=== PATIENT | female | born 1960 | race Caucasian/White ===

== ENCOUNTER 2017-08-15 07:56 | Day surgery (SDC) | payer BC, OTHER ==
--- NOTE | 2017-08-13 15:39 | HP ---
DATE OF SURGERY: 08/15/2017 ADMISSION DIAGNOSIS: Right chest wall nodule. ANTICIPATED PROCEDURE: Excision and closure. HISTORY OF PRESENT ILLNESS: PAST MEDICAL HISTORY: ALLERGIES: NONE. MEDICATIONS: See list. PAST SURGICAL HISTORY: Breast cancer. SOCIAL HISTORY: Negative. FAMILY HISTORY: Negative. REVIEW OF SYSTEMS: Negative. PHYSICAL EXAMINATION: VITAL SIGNS: Normal. CHEST: Clear. COR: Regular. IMPRESSION: Lesion right chest. PLAN: Excision.
[~2017-08-15 07:56] MED LIST: Lactated Ringers 1,000 ML IV SCH; Sensorcaine 0.25% 10 ML ONE
[2017-08-15] MEDS ORDERED: SUBLIMAZE 100 MCG/2 ML IV ONE (07:57)
[2017-08-15] MEDS ORDERED: DIPRIVAN 200 MG/20 ML IV ONE (07:57)
[2017-08-15] MEDS ORDERED: Versed 2 MG/2 ML Injection IV ONE (07:57)
[2017-08-15] MEDS ORDERED: Lactated Ringers 1,000 ML IV ONE (08:00)
[2017-08-15] MEDS ORDERED: KEFZOL 1 GM ONE (10:55)
[2017-08-15] MEDS ORDERED: TRANDATE 100 MG/20 ML MDV FOR DRIP IV ONE (11:27)
[2017-08-15] MEDS ORDERED: SUBLIMAZE 100 MCG/2 ML ONE (11:33)
[2017-08-15 12:28] VITALS: BP 187/90; PULSE 78; O2SAT 95
--- NOTE | 2017-08-15 15:15 | OP ---
SURGERY DATE/TIME: 08/15/2017 1025 PREOPERATIVE DIAGNOSIS: A 3 cm mass on previous right mastectomy site. POSTOPERATIVE DIAGNOSIS: A 3 cm mass on previous right mastectomy site. PROCEDURE: Major right chest wall excision including skin, subcu, deep subcu and portion of pectoralis major muscle and closure with 3.5 cm lesion being excised through a 14 x 5 cm elliptical excision with mobilization and closure. SURGEON: Trey Bowen M.D. ANESTHESIA: General. COMPLICATIONS: None. CONDITION: Stable. INDICATION: A patient with a very indurated, firm mass. It is unclear whether it is recurrence or scar. DESCRIPTION OF PROCEDURE: She was taken to surgery. It was treated as recurrence and a wide excision of this was performed. Hemostasis obtained with electrocautery. Flaps were mobilized. It was approximated. It was 14 cm long. Closed with vertical mattress sutures #20 Prolene. Hemostasis had been obtained with 3-0 Vicryl and electrocautery. The lesion itself was not violated. It was widely excised. It did require taking a portion of the musculature.
== END 2017-08-15 12:54 | disposition home or self-care (01) ==
LOC: SDC 07:56
PROVIDERS: ATTEND Surgery
PROC: 0JX60ZC Transfer Chest Subcutaneous Tissue and Fascia with Skin, Subcutaneous Tissue and Fascia, Open Approach (ICD-10-PCS; principal; 2017-08-15)
PROC: 0JB60ZZ Excision of Chest Subcutaneous Tissue and Fascia, Open Approach (ICD-10-PCS; 2017-08-15)
DX: C50.911 Malignant neoplasm of unspecified site of right female breast (principal); C79.89 Secondary malignant neoplasm of other specified sites; R22.2 Localized swelling, mass and lump, trunk; Z85.3 Personal history of malignant neoplasm of breast
CPT/HCPCS: 88305; 88341; 88342; 88360; J0690; J2250; J2704; J3010

== ENCOUNTER 2018-03-10 17:26 | Emergency (ER) | payer BC ==
[2018-03-10] MEDS ORDERED: TORAdol 30 mg Injection IM ONE (17:47)
--- NOTE | 2018-03-10 17:47 | ERPHSYRPT ---
- History of Present Illness Time Seen by Provider: 03/10/18 17:44 Source: patient, family Exam Limitations: no limitations Physician History: The patient is a 57-year-old female with family complaining that 6 hours ago she stubbed her right little toe on the couch causing bruising and pain. It is very painful when she tries to walk. Her past medical history is significant for breast cancer with double mastectomy. She is currently on chemotherapy. Method of Injury: direct blow Occurred: this afternoon Quality: constant, aching Severity of Pain-Max: moderate Severity of Pain-Current: moderate Lower Extremities Pain: 5th toe: right Modifying Factors: Improves With: nothing Associated Symptoms: none Allergies/Adverse Reactions: codeine Adverse Reaction (Verified 03/10/18 17:50) Nausea Home Medications: Cetirizine HCl [Zyrtec] 10 mg PO DAILY 03/10/18 [History] Cyanocobalamin 100 Mcg [Vitamin B-12 100 Mcg] 100 mcg PO DAILY 03/10/18 [ History] - Review of Systems Constitutional: No Fever, No Chills Eyes: No Symptoms Ears, Nose, & Throat: No Symptoms Respiratory: No Cough, No Dyspnea Cardiac: No Chest Pain, No Edema, No Syncope Abdominal/Gastrointestinal: No Abdominal Pain, No Nausea, No Vomiting, No Diarrhea Genitourinary Symptoms: No Dysuria Musculoskeletal: Injury, Joint Pain, Joint Swelling Skin: No Rash Neurological: No Dizziness, No Focal Weakness, No Sensory Changes Psychological: No Symptoms Endocrine: No Symptoms Hematologic/Lymphatic: No Symptoms Immunological/Allergic: No Symptoms All Other Systems: Reviewed and Negative - Past Medical History Pertinent Past Medical History: Yes Neurological History: No Pertinent History ENT History: No Pertinent History Cardiac History: No Pertinent History Respiratory History: No Pertinent History Endocrine Medical History: No Pertinent History Musculoskeletal History: No Pertinent History GI Medical History: No Pertinent History History: No Pertinent History Psycho-Social History: No Pertinent History Female Reproductive Disorders: Breast Cancer Other Medical History: genital warts - Past Surgical History Past Surgical History: Yes Neuro Surgical History: No Pertinent History Cardiac: No Pertinent History Respiratory: No Pertinent History Gastrointestinal: No Pertinent History Genitourinary: No Pertinent History Musculoskeletal: No Pertinent History Female Surgical History: Dilation & Curettage, Section, Mastectomy, Other Other Surgical History: CVL PLACEMENT AND REMOVAL, ESTRADA PROCEDURE X3 - Social History Smoking Status: Never smoker Exposure to second hand smoke: No Drug Use: none - Nursing Vital Signs Nursing Vital Signs: Initial Vital Signs Temperature 98.7 F 03/10/18 17:40 Pulse Rate 100 H 03/10/18 17:40 Respiratory Rate 16 03/10/18 17:40 Blood Pressure 161/101 03/10/18 17:40 O2 Sat by Pulse Oximetry 95 03/10/18 17:40 Pain Scale Pain Intensity 2 - Physical Exam General Appearance: alert Eyes, Ears, Nose, Throat Exam: moist mucous membranes Neck Exam: non-tender, supple Cardiovascular/Respiratory Exam: chest non-tender, normal breath sounds, regular rate/rhythm, no respiratory distress Gastrointestinal/Abdominal Exam: non-tender, guarding Back Exam: normal inspection, No vertebral tenderness Hips Exam: bilateral: normal inspection Legs Exam: bilateral leg: normal inspection Knees Exam: bilateral knee: normal inspection Ankle Exam: bilateral ankle: normal inspection Foot Exam: right foot: limited range of motion, pain, soft tissue tenderness, swelling, other (The MTP joint of the right foot fifth digit is tender, swollen , and ecchymotic. There is limited range of motion due to pain. There is no obvious deformity.) Neuro/Tendon Exam: normal sensation, normal motor functions Mental Status Exam: alert, oriented x 3, cooperative Skin Exam: ecchymosis SpO2 Interpretation: normal Oxygen Delivery: Room Air - Radiology Exams Right Foot X-ray Interpretation: Reviewed by me, Discussed w/ radiologist (Dr Woodard), Negative, No Fracture, No Subluxation Ordered Tests: Active Orders 24 hr Category Date Time Status FOOT (MINIMUM 3 VIEWS) Stat Exams 03/10/18 17:47 Taken Medication Summary Discontinued Medications Generic Name Dose Route Start Last Admin Trade Name [facility] PRN Reason Stop Dose Admin Ketorolac Tromethamine 60 mg 03/10/18 17:47 03/10/18 18:25 Toradol 30 Mg Injection IM 03/10/18 17:48 60 mg STAT ONE Administration Ketorolac Tromethamine Confirm 03/10/18 18:24 Toradol 30 Mg Injection Administered 03/10/18 18:25 Dose 60 mg .ROUTE .STK-MED ONE - Progress Progress: improved Counseled pt/family regarding: diagnosis, rad results - Departure Time of Disposition: 18:58 Departure Disposition: Home Clinical Impression: Contusion of fifth toe of right foot Condition: Stable Critical Care Time: No Referrals: KENYA DELA CRUZ MD [Primary Care Provider] - Additional Instructions: You have a contusion to your right little toe. The x-ray was normal without any broken bones. You were given Toradol 60 mg by IM in the ER. Apply ice to the area as needed. Take Tylenol and ibuprofen as needed. Follow-up with your primary medical doctor as needed.
[2018-03-10] MEDS ORDERED: TORAdol 30 mg Injection ONE (18:24)
[2018-03-10 19:11] VITALS: BP 180/93; PULSE 96; O2SAT 96
--- NOTE | 2018-03-11 08:44 | XRAY ---
Indication: 5th toe pain following injury. Comparison: October 16, 2008. 3 nonweightbearing views of the right foot demonstrates 5th toe soft tissue swelling and interval enlarging small heel spurs. No other bony, articular, or soft tissue abnormalities.
== END 2018-03-10 19:12 | disposition home or self-care (01) ==
LOC: ED 17:26
DX: S90.121A Contusion of right lesser toe(s) without damage to nail, initial encounter (principal); W22.03XA Walked into furniture, initial encounter
CPT/HCPCS: 73630; 96372; 99284; J1885

== ENCOUNTER 2018-07-25 15:14 | Observation (INO) | payer BC ==
[2018-07-25] MEDS ORDERED: ANTIVERT 25 MG PO PRN (15:58)
[2018-07-25] MEDS ORDERED: NON-FORMULARY ITEM (Prochlorperazine Maleate 10 Mg [Compazine 10 Mg] 10 MG) PO PRN (15:58)
[2018-07-25] MEDS ORDERED: BETAMETHASONE DIPROPIONATE TP PRN (15:58)
[2018-07-25] MEDS ORDERED: LYRICA 75 MG CAP PO PRN (15:58)
[2018-07-25] MEDS ORDERED: Sodium Chloride 0.9% 1000 ML 1,000 ML IV ONE ×2 (16:00→17:00)
[2018-07-25] MEDS ORDERED: MOTRIN 400 MG PO PRN (16:07)
[2018-07-25] MEDS ORDERED: TYLENOL EXTRA STRENGTH 500 MG PO PRN (16:07)
[2018-07-25] MEDS ORDERED: MEDICATION INTERVENTION MC SCH (16:30)
[2018-07-25] MEDS ORDERED: MEDICATION INTERVENTION PO SCH (16:30)
[2018-07-25 17:13] LABS: Hematocrit 40.5 % (35-47); Hemoglobin 13.7 gm/dl (12.0-16.0); Mean Cell Volume 84.9 fl (78-100); Mean Corpuscular Hemoglobin 28.7 pg (26-32); Mean Corpuscular Hgb Concent. 33.8 g/dl (32-36); Mean Platelet Volume 9.4 fl (6-9.5); Platelet Count 143 K/mm3 (150-450); Red Blood Count 4.77 M/mm3 (4.1-5.4); Red Cell Distribution Width 13.9 % (11.5-14.0)
[2018-07-25] MEDS: ENOXAPARIN SODIUM SQ SCH (17:13)
[2018-07-25] MEDS: ROCEPHIN 1 Gm-D5w 50 ml Bag** 1 G/50 ML IVPB IV SCH (17:13)
[2018-07-25] MEDS: Zithromax 500 MG/ 250 ML NaCl Premix 500 MG/250 ML IVPB IV SCH (17:17)
[2018-07-25 17:19] LABS: ALBUMIN 3.8 g/dL (3.5-5.0); ALKALINE PHOSPHATASE 105 U/L (38-126); ANION GAP 10.8 MEQ/L (5-15); BLOOD UREA NITROGEN 11 mg/dL (7-17); CHLORIDE 106 mmol/L (98-107); Calcium 8.6 mg/dL (8.4-10.2); Carbon Dioxide 27 mmol/L (22-30); Creatinine 1 0.86 mg/dL (0.52-1.04); Glucose 136 mg/dL (74-106); Potassium 3.3 mmol/L (3.5-5.1); SGOT/AST 29 U/L (14-36); SGPT/ALT 29 U/L (0-35); SODIUM 140 mmol/L (137-145); Total Protein 7.1 g/dL (6.3-8.2)
[2018-07-25] MEDS: Robitussin AC Syrup Unit Dose Cup PO PRN ×2 (17:25→21:08)
[2018-07-25] MEDS: Naprosyn 500 MG PO PRN (21:14)
[2018-07-25] MEDS: Vitamin B-12 500 MCG PO SCH (21:28)
[2018-07-25] MEDS: CLARITIN 10 MG PO SCH (21:29)
[2018-07-25] MEDS: Protonix 40MG Tablet PO SCH (21:29)
[2018-07-25] MEDS: VITAMIN B-12 100 MCG PO SCH (21:31)
[2018-07-25] MEDS ORDERED: NON-FORMULARY ITEM (Omeprazole [Omeprazole] 20 MG) PO SCH (22:00)
[2018-07-25] MEDS ORDERED: NON-FORMULARY ITEM (Cetirizine Hcl [Zyrtec] 10 MG) PO SCH (22:00)
[2018-07-25] MEDS ORDERED: EXEMESTANE PO SCH (22:00)
--- NOTE | 2018-07-25 22:28 | XRAY ---
Indication: Cough and congestion one month. Comparison: November 06, 2017. PA/lateral chest remains clear. Heart and mediastinal structures within normal limits again with left-sided Port-A-Cath. Bony thorax intact with mild degenerative changes, mild double curvature scoliosis, and right axilla surgical clips. Impression: Stable nonacute chest with chronic features. Comment: Preliminary interpretation was made by [facility] who reports "left posterior basilar bronchopneumonia" which I do not appreciate.
[2018-07-26] MEDS: Sodium Chloride 0.9% 1000 ML 1,000 ML IV SCH (03:57)
[2018-07-26] MEDS: Robitussin AC Syrup Unit Dose Cup PO PRN ×3 (04:15→18:23)
[2018-07-26] MEDS ORDERED: PATIENT OWN MEDICATION TOP PRN (07:52)
[2018-07-26] MEDS: ENOXAPARIN SODIUM SQ SCH (08:35)
[2018-07-26] MEDS: ROCEPHIN 1 Gm-D5w 50 ml Bag** 1 G/50 ML IVPB IV SCH (08:36)
[2018-07-26] MEDS: PATIENT OWN MEDICATION PO SCH ×2 (08:36→21:57)
[2018-07-26] MEDS: Zithromax 500 MG/ 250 ML NaCl Premix 500 MG/250 ML IVPB IV SCH (09:51)
[2018-07-26 13:36] LABS: A-aADO2 1; ABG HEMOGLOBIN 12.6; ABG POTASSIUM 3.5 (3.5-5.1); ABG SITE RIGHT BRACHIAL; ARTERIAL BLD GAS O2 SATURATION 98.9 % (95-100); ARTERIAL BLOOD GAS BASE EXCESS -0.9 (-2.0-2.0); ARTERIAL BLOOD GAS FIO2 21 %; ARTERIAL BLOOD GAS PCO2 37 mmHg (35-45); ARTERIAL BLOOD GAS PO2 102 mmHg (75-100); ARTERIAL BLOOD GAS pH 7.41 (7.35-7.45); CARBOXYHEMOGLOBIN 2.5 % THgb (0.0-6.9); HCO3- 23.5 (22-28); HGB O2 SAT 95.6 g/dF (94-100); Methhemoglobin 0.9 % (1.4-1.5); paO2 pAO1 0.99
[2018-07-26] MEDS: solu-MEDROL 125 MG IV SCH ×2 (14:16→21:56)
[2018-07-26] MEDS: Compazine 5 MG PO PRN (17:55)
[2018-07-26] MEDS: Vitamin B-12 500 MCG PO SCH (21:56)
[2018-07-26] MEDS: VITAMIN B-12 100 MCG PO SCH (21:56)
[2018-07-26] MEDS: Protonix 40MG Tablet PO SCH (21:56)
[2018-07-26] MEDS: Naprosyn 500 MG PO PRN (21:56)
[2018-07-26] MEDS: CLARITIN 10 MG PO SCH (21:56)
[2018-07-27] MEDS: Sodium Chloride 0.9% 1000 ML 1,000 ML IV SCH ×3 (02:03→23:15)
[2018-07-27] MEDS: solu-MEDROL 125 MG IV SCH ×3 (06:19→21:44)
[2018-07-27] MEDS: Robitussin AC Syrup Unit Dose Cup PO PRN ×3 (06:19→18:45)
--- NOTE | 2018-07-27 08:24 | XRAY ---
Indication: Elevated d-dimer. Multiple contiguous axial images obtained through the chest using 80 cc Isovue 370 contrast and PE protocol. Comparison: CT chest September 17, 2010. There is satisfactory opacification of the pulmonary arteries to include the lobar and segmental branches. No filling defect or pulmonary embolus. Heart is not enlarged. Aorta is normal in course and caliber. New left-sided Port-A-Cath with tip in the SVC. No pathologic mediastinal/hilar lymphadenopathy. Examination of the lung parenchyma again demonstrates right middle lobe minimal fibrosis/scarring and 5 mm nodularity unchanged. No suspicious pulmonary mass, infiltrate, or effusion. Bony thorax intact. There has been bilateral mastectomy with right axillary santos dissection. New fluid collection in the right anterior chest wall measuring 9.1 x 3.6 x 1.2 cm either postoperative seroma versus hematoma with infection not completely excluded in the right clinical setting. Limited upper abdomen demonstrates mild fatty liver. Impression: 1. Negative pulmonary embolus. No acute cardiopulmonary abnormalities. 2. Stable right middle lobe fibrosis/scarring and nodularity. 3. Bilateral mastectomy with new right injury or chest wall fluid collection. Rule out postoperative seroma versus hematoma. Infection not completely excluded. 4. Incidental fatty liver. Comment: Preliminary interpretation was made by [facility]. No critical discrepancy. CTDI 21.38
[2018-07-27] MEDS: ENOXAPARIN SODIUM SQ SCH (10:31)
[2018-07-27] MEDS: Zithromax 500 MG/ 250 ML NaCl Premix 500 MG/250 ML IVPB IV SCH (10:32)
[2018-07-27] MEDS: ROCEPHIN 1 Gm-D5w 50 ml Bag** 1 G/50 ML IVPB IV SCH (10:32)
--- NOTE | 2018-07-27 19:48 | XRAY ---
Indication: Right shoulder pain. No known injury. Comparison: None 3 views of the right shoulder demonstrates mild AC degenerative arthropathy with inferior spurring, partially visualized left central venous access catheter with tip in SVC, and tiny metallic foreign body overlying the axilla. No other bony, articular, or soft tissue abnormalities.
[2018-07-27] MEDS: CLARITIN 10 MG PO SCH (21:44)
[2018-07-27] MEDS: Vitamin B-12 500 MCG PO SCH (21:44)
[2018-07-27] MEDS: VITAMIN B-12 100 MCG PO SCH (21:44)
[2018-07-27] MEDS: Protonix 40MG Tablet PO SCH (21:44)
[2018-07-27] MEDS: PATIENT OWN MEDICATION PO SCH (21:46)
[2018-07-28] MEDS: Robitussin AC Syrup Unit Dose Cup PO PRN ×4 (02:02→21:38)
[2018-07-28] MEDS: Ativan 0.5 MG PO PRN (02:06)
[2018-07-28] MEDS: solu-MEDROL 125 MG IV SCH ×3 (06:13→21:36)
[2018-07-28] MEDS: ENOXAPARIN SODIUM SQ SCH (07:49)
[2018-07-28] MEDS: ROCEPHIN 1 Gm-D5w 50 ml Bag** 1 G/50 ML IVPB IV SCH (07:49)
[2018-07-28] MEDS: Zithromax 500 MG/ 250 ML NaCl Premix 500 MG/250 ML IVPB IV SCH (09:04)
[2018-07-28] MEDS: PATIENT OWN MEDICATION PO SCH ×2 (09:38→21:37)
[2018-07-28] MEDS ORDERED: Lopressor 25MG Tab PO SCH (10:00)
--- NOTE | 2018-07-28 10:29 | XRAY ---
Indication: Elevated d-dimer. Two-dimensional sonogram and color Doppler imaging of the major venous vessels of the left and right leg was performed. Comparison: None No thrombus seen in the examined deep venous vessels of the left and right leg including greater saphenous veins. Veins demonstrate normal compressibility. Venous waveforms are normal with and without augmentation. Impression: Left and right legs negative for DVT.
[2018-07-28] MEDS: Sodium Chloride 0.9% 1000 ML 1,000 ML IV SCH ×2 (11:39→21:35)
[2018-07-28] MEDS ORDERED: PATIENT OWN MEDICATION TOP PRN (12:39)
--- NOTE | 2018-07-28 13:11 | PROG NOTE ---
DATE: 07/27/2018 Chart is reviewed and events noted. Initially it was thought she might be allergic to contrast. Fish allergy. Allergic to fish several years ago. However eventually the patient stated it was not specific in nature and requested to undergo CT scan anyway. The patient underwent CT chest yesterday. At the time of this evaluation she is alert, awake, comfortable, states the shortness of breath is improving, still having some cough. Complains of right shoulder pain which has been there for the last several days, denies recent trauma or unusual activity. The patient states she was told that due to her chemotherapy she might have some problems with the right shoulder. PHYSICAL EXAMINATION: VITAL SIGNS: Blood pressure 172/77, heart rate 92, respiratory rate 18, temperature 98.2F. Oxygen saturation 95% on room air. HEENT: No pallor or icterus is noted. NECK: No JVD is present. CVS: S1, S2 present. RESPIRATORY: Breath sounds are bilaterally diminished and clear to auscultation. ABDOMEN: Soft, nontender. NEURO: She is alert, oriented x3. EXTREMITIES: No edema on bilateral lower extremities. No calf tenderness. Janette sign negative bilaterally. Brief examination of right shoulder shows tenderness and painful range of motion. LABORATORY DATA AND TESTS: Labs from yesterday were notable for D-dimer of 802. ABG showed pH 7.41, pCO2 37, pO2 102. Troponin was less than 0.012. Patient underwent CT chest yesterday showed negative pulmonary embolus. No acute cardiopulmonary abnormalities. Stable right middle lobe fibrosis/scarring and nodularity. Bilateral mastectomy with new right injury or chest wall fluid collection 9.1 x 3.6 x1.2 cm. Rule out postoperative seroma versus hematoma. Infection not completely excluded. Incidental fatty liver. Medications were reviewed. ASSESSMENT: A 57 year old woman with impression: 1) Acute bronchopneumonia. 2) Fluid collection right chest wall. 3) History of breast CA status post treatment. PLAN: The patient is improving clinically. Will continue nebulization, IV antibiotics, IV steroids and taper steroids as tolerated. With regards to her right chest wall hematoma the patient states her surgery on the right breast area was about one year ago and at this time she still had some discomfort. Brief examination of the area showed well healed surgical scar in the right breast region. Ill-defined area of tenderness in the region and mild swelling was noted around this area. In view of the patient's above CT findings, will obtain surgery evaluation, additional diagnosis and management of fluid collection per surgery recommendations. With regards to right shoulder pain, I have advised the patient that she will likely need MRI. The patient is requesting right shoulder chest x-ray to be done while she is here and will request that. She declined any additional analgesics and states current medications are helping. Likely discharge tomorrow if continues to improve. The plan was discussed with the patient. She seems to be in understanding and agreement. ADDENDUM: Please refer to my prior dictation for details. As noted earlier CT chest was negative. In view of elevated D-dimer and patient's prior history will obtain bilateral lower extremity venous Doppler's. The plan was discussed with the patient. She seems to be in understanding and agreement. The patient's nurse was not available at the time of this evaluation.
[2018-07-28 14:07] LABS: 027 TOX PROD PRESUMPTIVE NEGATIVE (NEGATIVE); TOXIGENIC C. DIFF ORG NEGATIVE (NEGATIVE)
[2018-07-28] MEDS: Lomotil PO PRN ×2 (14:28→21:48)
[2018-07-28] MEDS ORDERED: Lopressor 25MG Tab PO PRN (17:53)
[2018-07-28] MEDS: Vitamin B-12 500 MCG PO SCH (21:36)
[2018-07-28] MEDS: VITAMIN B-12 100 MCG PO SCH (21:36)
[2018-07-28] MEDS: CLARITIN 10 MG PO SCH (21:36)
[2018-07-28] MEDS: Protonix 40MG Tablet PO SCH (21:36)
[2018-07-29] MEDS: Ativan 0.5 MG PO PRN (00:37)
[2018-07-29] MEDS: solu-MEDROL 125 MG IV SCH (06:09)
[2018-07-29] MEDS: Compazine 5 MG PO PRN (06:46)
[2018-07-29] MEDS: Sodium Chloride 0.9% 1000 ML 1,000 ML IV SCH (08:02)
[2018-07-29] MEDS: Robitussin AC Syrup Unit Dose Cup PO PRN (08:03)
--- NOTE | 2018-07-29 08:04 | PROG NOTE ---
DATE: 07/26/2018 Chart is reviewed and events noted. At the time of this evaluation a short while ago the patient stated that she continues to have persistent shortness of breath, chest congestion and productive cough. Complains of fatigue. Appears comfortable. PHYSICAL EXAMINATION: VITAL SIGNS: Blood pressure 159/77, heart rate 81, respiratory rate 18, temperature 98.1F. Oxygen saturation 96% on room air. HEENT: No pallor or icterus is noted. NECK: No JVD is present. CVS: S1, S2 present. RESPIRATORY: Course breath sounds. ABDOMEN: Soft, nontender. NEURO: She is alert and oriented x3. EXTREMITIES: No edema on bilateral lower extremities. LABORATORY DATA AND TESTS: Labs from 07/25/2018 were notable for CBC with white blood cell 3, hemoglobin 13.7, hematocrit 40.5, PLT 143,000. BMP essentially unremarkable except potassium 3.3, glucose 136. Chest x-ray from 07/25/2018 showed stable nonacute chest with chronic features. Medications were reviewed. ASSESSMENT: A 57 year old woman with impression: 1) Bronchitis, recurrent. 2) History of anxiety. 3) History of lymphoma status post treatment. 4) Mild hypokalemia. PLAN: 1) Continue IV antibiotics. 2) Addition of nebulization, IV steroids. 3) Continue to follow CBC, electrolytes and chest x-ray. 4) Lovenox and SCD will be discontinued. Will obtain D-dimer. The plan was discussed with the patient and her son. They seem to be in understanding and agreement. Discussed with patient's nurse.
[2018-07-29] MEDS: Lomotil PO PRN (08:06)
[2018-07-29] MEDS ORDERED: ENOXAPARIN SODIUM SQ SCH (10:00)
[2018-07-29] MEDS: ROCEPHIN 1 Gm-D5w 50 ml Bag** 1 G/50 ML IVPB IV SCH (10:19)
[2018-07-29] MEDS: Zithromax 500 MG/ 250 ML NaCl Premix 500 MG/250 ML IVPB IV SCH (10:20)
[2018-07-29] MEDS: PATIENT OWN MEDICATION PO SCH (10:21)
[2018-07-29 11:22] VITALS: BP 166/100; PULSE 66; O2SAT 96
--- NOTE | 2018-07-29 12:35 | PCM.NOTE ---
Date and Time: 07/28/2018 1234 Subjective Assessment: doing ok - Review of Systems Constitutional: No Fever, No Chills Eyes: No Symptoms Ears, Nose, & Throat: No Symptoms Respiratory: No Cough, No Short Of Breath Cardiac: No Chest Pain, No Edema, No Syncope Abdominal/Gastrointestinal: No Abdominal Pain, No Nausea, No Vomiting, No Diarrhea Genitourinary Symptoms: No Dysuria Musculoskeletal: No Back Pain, No Neck Pain Skin: No Rash Neurological: No Dizziness, No Focal Weakness, No Sensory Changes Psychological: No Symptoms Endocrine: No Symptoms Hematologic/Lymphatic: No Symptoms Immunological/Allergic: No Symptoms Objective Exam General Appearance: no apparent distress, alert Neurologic Exam: alert, oriented x 3, cooperative, normal mood/affect, nml cerebellar function, sensation nml, No motor deficits Skin Exam: normal color, warm, dry Eye Exam: PERRL, EOMI, eyes nml inspection Ears, Nose, Throat Exam: normal ENT inspection, pharynx normal, moist mucous membranes Neck Exam: normal inspection, non-tender, supple, full range of motion Respiratory Exam: normal breath sounds, lungs clear, No respiratory distress Cardiovascular Exam: regular rate/rhythm, normal heart sounds Gastrointestinal/Abdomen Exam: soft, No tenderness, No mass Extremity Exam: normal inspection, normal range of motion Back Exam: normal inspection, normal range of motion, No CVA tenderness, No vertebral tenderness Pelvic Exam: deferred Rectal Exam: deferred OBJECTIVE DATA Vital Signs: Vital Signs - 24 hr Temp Pulse Resp BP BP Pulse Ox 07/29/18 11:21 97.5 F 66 20 166/100 96 07/29/18 07:06 98.1 F 87 20 95 07/29/18 04:00 97.9 F 75 22 188/83 96 07/29/18 00:00 98.5 F 78 20 196/81 94 L 07/28/18 20:10 82 210/110 07/28/18 20:00 97.5 F 74 18 232/123 224/115 94 L 07/28/18 16:00 98 F 86 18 183/81 94 L Pain Assessment - Last Documented Pain Intensity 0 Pain Scale Used FLACC Intake and Output: Intake & Output 07/27/18 07/28/18 07/29/18 07/30/18 11:59 11:59 11:59 11:59 Intake Total 2920 2400 4206 Output Total 1198 509 8593 Balance 1740 2000 2906 Lab Results: Lab Results-Last 24 Hours 07/28/18 Range/Units 12:49 Stl C. diff Tox B Gene NEGATIVE (NEGATIVE) C.difficile [id number] PRESUMPTIVE NEGATIVE (NEGATIVE) Radiology Exams: Radiology Procedures Category Date Time Status SHOULDER Routine Exams 07/27/18 16:58 Completed VENOUS BILATERAL EXTREMITY [US] Routine Exams 07/28/18 08:00 Completed Assessment/Plan (1) Immunocompromised patient Current Visit: Yes Status: Acute Code(s): D84.9 - IMMUNODEFICIENCY, UNSPECIFIED (2) Pneumonia Current Visit: Yes Status: Acute Code(s): J18.9 - PNEUMONIA, UNSPECIFIED ORGANISM (3) Shortness of breath on exertion Current Visit: Yes Status: Acute Code(s): R06.02 - SHORTNESS OF BREATH
--- NOTE | 2018-07-29 12:36 | PCM.DS ---
Discharge Summary Date of Admission: 07/25/18 15:14 Admitting Physician: KENYA DELA CRUZ Consults: Consults on Case 07/27/18 16:22 Consult Surgery ROUTINE Primary Care Provider: KENYA DELA CRUZ Allergies Allergies codeine Adverse Reaction (Verified 03/10/18 17:50) Nausea Hospital Summary - Hospital Course Hospital Course: Last Vital Signs Temp 97.5 F 07/29/18 11:21 Pulse 66 07/29/18 11:21 Resp 20 07/29/18 11:21 BP 166/100 07/29/18 11:21 Pulse Ox 96 07/29/18 11:21 Allergies codeine Adverse Reaction (Verified 03/10/18 17:50) Nausea Active Medications Acetaminophen (Tylenol Extra Strength 500 Mg) 500 mg PO Q6H PRN PRN PRN Reason: HEADACHE Stop: 08/24/18 16:06 Cyanocobalamin (Vitamin B-12 100 Mcg) 100 mcg PO HS JONE Stop: 08/24/18 21:59 Last Admin: 07/28/18 21:36 Dose: 100 mcg Cyanocobalamin (Vitamin B-12 500 Mcg) 500 mcg PO HS [facility] Stop: 08/24/18 21:59 Last Admin: 07/28/18 21:36 Dose: 500 mcg Diphenoxylate HCl/Atropine (Lomotil) 1 tablet PO Q4H PRN PRN Reason: DIARRHEA Stop: 08/27/18 09:24 Last Admin: 07/29/18 08:06 Dose: 1 tablet Enoxaparin Sodium (Enoxaparin Sodium) 30 mg SQ DAILY JONE Stop: 08/28/18 09:59 Last Admin: 07/29/18 10:22 Dose: Not Given Ergocalciferol (Vitamin D2) 50,000 unit PO Th JONE Stop: 08/30/18 09:59 Guaifenesin/Codeine Phosphate (Robitussin Ac Syrup Unit Dose Cup) 5 ml PO Q4H PRN PRN PRN Reason: COUGH Stop: 08/24/18 16:05 Last Admin: 07/29/18 08:03 Dose: 5 ml Heparin Sodium (Beef Lung) (Heparin Lock Flush 100 Units/Ml 5ml Syringe) 500 units PORT FLUSH PRN PRN PRN Reason: IV PORT FLUSH Stop: 08/25/18 11:15 Last Admin: 07/29/18 12:21 Dose: 500 units Ceftriaxone Sodium/Dextrose (Rocephin 1 Gm-D5w 50 Ml Bag) 1 g in 50 mls @ 100 mls/hr IV Q24H10 [facility] Stop: 08/24/18 17:59 Last Admin: 07/29/18 10:19 Dose: 100 mls/hr Azithromycin (Zithromax 500 Mg/ 250 Ml Nacl Premix) 500 mg in 250 mls @ 250 mls /hr IV Q24H10 [facility] Stop: 08/24/18 18:29 Last Admin: 07/29/18 10:20 Dose: 250 mls/hr Sodium Chloride (Sodium Chloride 0.9% 1000 Ml) 1,000 mls @ 100 mls/hr IV .Q10H [facility] Stop: 08/24/18 17:59 Last Admin: 07/29/18 08:02 Dose: 100 mls/hr Ibuprofen (Motrin 400 Mg) 400 mg PO Q8H PRN PRN PRN Reason: MODERATE PAIN Stop: 08/24/18 16:06 Last Admin: 07/26/18 08:34 Dose: 400 mg Loratadine (Claritin 10 Mg) 10 mg PO HS [facility] Stop: 08/24/18 21:59 Last Admin: 07/28/18 21:36 Dose: 10 mg Lorazepam (Ativan 0.5 Mg) 0.5 mg PO Q4HPRN PRN PRN Reason: ANXIETY Stop: 08/24/18 15:57 Last Admin: 07/29/18 00:37 Dose: 0.5 mg Meclizine HCl (Antivert 25 Mg) 25 mg PO Q6HPRN PRN PRN Reason: DIZZINESS Stop: 08/24/18 15:57 Methylprednisolone Sodium Succinate (Solu-Medrol 125 Mg) 60 mg IV Q8HT [facility] Stop: 08/25/18 13:59 Last Admin: 07/29/18 06:09 Dose: 60 mg Metoprolol Tartrate (Lopressor 25mg Tab) 25 mg PO BIDPRN PRN PRN Reason: ELEVATED BLOOD PRESSURE Stop: 08/27/18 17:52 Last Admin: 07/28/18 21:58 Dose: 25 mg Naproxen (Naprosyn 500 Mg) 500 mg PO BIDPRN PRN PRN Reason: PAIN Stop: 08/24/18 15:57 Last Admin: 07/26/18 21:56 Dose: 500 mg Pantoprazole Sodium (Protonix 40mg Tablet) 40 mg PO HS JONE Stop: 08/24/18 21:59 Last Admin: 07/28/18 21:36 Dose: 40 mg Exemestane 25mg (Tablet) 1 each PO DAILY JONE Stop: 08/25/18 09:59 Last Admin: 07/29/18 10:21 Dose: Not Given Sernivo [place] 0 each TOP BID PRN PRN Stop: 08/25/18 07:51 Patient Own Med ( (Mometasone Cr)) 0 each TOP QID PRN PRN Stop: 08/27/18 12:38 Pregabalin (Lyrica 75 Mg Cap) 75 mg PO DAILY PRN PRN PRN Reason: PAIN Stop: 08/24/18 15:57 Prochlorperazine (Compazine 5 Mg) 10 mg PO Q4H PRN PRN PRN Reason: NAUSEA/VOMITING Stop: 08/24/18 16:12 Last Admin: 07/29/18 06:46 Dose: 10 mg Intake & Output 07/29/18 07/30/18 11:59 11:59 Intake Total 4206 Output Total 1300 Balance 2906 Orders 07/28/18 12:39 Patient Own Med [Patient Own Medication] 0 each TOP QID PRN PRN 07/28/18 17:53 Metoprolol Tartrate 25 mg [Lopressor 25MG Tab] 25 mg PO BIDPRN PRN 07/29/18 Discharge Routine 07/29/18 10:00 Enoxaparin Sodium [Enoxaparin Sodium] 30 mg SQ DAILY 07/31/18 10:00 Ergocalciferol (Vitamin D2) [Vitamin D2] 50,000 unit PO Th Lab Tests 07/28/18 12:49 Stl C. diff Tox B Gene NEGATIVE C.difficile 027-NAP1-B1 PRESUMPTIVE NEGATIVE - Vitals & Intake/Output Vital Signs: Vital Signs Temperature 97.5 F 07/29/18 11:21 Pulse Rate 66 07/29/18 11:21 Respiratory Rate 20 02/26/19 11:21 Blood Pressure 166/100 07/29/18 11:21 O2 Sat by Pulse Oximetry 96 07/29/18 11:21 Intake & Output: Intake & Output 07/27/18 07/28/18 07/29/18 07/30/18 11:59 11:59 11:59 11:59 Intake Total 2920 2400 4206 Output Total 7621 049 5046 Balance 1740 2000 2906 - Lab Result Diagrams: 07/25/18 16:50 07/25/18 16:50 Lab Results-Last 24 Hrs: Lab Results-Last 24 Hours 07/28/18 Range/Units 12:49 Stl C. diff Tox B Gene NEGATIVE (NEGATIVE) C.difficile 027-NAP1-B1 PRESUMPTIVE NEGATIVE (NEGATIVE) Micro Results-Entire Visit: Microbiology 07/25/18 16:50 Blood Culture - Preliminary Blood NO GROWTH TO DATE - Radiology Exams Ordered Rad Exams-Entire Visit: Radiology Procedures Category Date Time Status SHOULDER Routine Exams 07/27/18 16:58 Completed VENOUS BILATERAL EXTREMITY [US] Routine Exams 07/28/18 08:00 Completed Discharge Exam General Appearance: no apparent distress, alert Neurologic Exam: alert, oriented x 3, cooperative, normal mood/affect, nml cerebellar function, sensation nml, No motor deficits Skin Exam: normal color, warm, dry Eye Exam: PERRL, EOMI, eyes nml inspection Ears, Nose, Throat Exam: normal ENT inspection, pharynx normal, moist mucous membranes Neck Exam: normal inspection, non-tender, supple, full range of motion Respiratory Exam: normal breath sounds, lungs clear, No respiratory distress Cardiovascular Exam: regular rate/rhythm, normal heart sounds Gastrointestinal/Abdomen Exam: soft, No tenderness, No mass Extremity Exam: normal inspection, normal range of motion Back Exam: normal inspection, normal range of motion, No CVA tenderness, No vertebral tenderness Pelvic Exam: deferred Rectal Exam: deferred Final Diagnosis/Problem List - Final Discharge Diagnosis/Problem (1) Immunocompromised patient Current Visit: Yes Status: Acute (2) Pneumonia Current Visit: Yes Status: Acute (3) Shortness of breath on exertion Current Visit: Yes Status: Acute - Discharge Discharge Date: 07/29/18 Disposition: Home, Self-Care Condition: Stable Prescriptions: New Prednisone 5 mg [Deltasone 5 mg] 5 mg PO BID #6 tablet Continue Cyanocobalamin 100 Mcg [Vitamin B-12 100 Mcg] 100 mcg PO HS Cetirizine HCl [Zyrtec] 10 mg PO HS Pregabalin [Lyrica 75 mg Cap] 75 mg PO DAILY PRN PRN PRN Reason: Pain Ergocalciferol (Vitamin D2) [Vitamin D2] 1 cap PO WEEKLY Naproxen 500 mg [Naprosyn 500 MG] 500 mg PO BIDPRN PRN PRN Reason: Pain Omeprazole 20 mg PO HS Cyanocobalamin 500 Mcg [Vitamin B-12 500 MCG] 500 mcg PO HS Prochlorperazine Maleate 10 mg [Compazine 10 mg] 10 mg PO Q4HPRN PRN PRN Reason: n/v Lorazepam 0.5 mg [Ativan 0.5 MG] 0.5 mg PO Q4HPRN PRN PRN Reason: Anxiety Exemestane 1 tab PO HS Meclizine HCl 25 mg [Antivert 25 mg] 25 mg PO Q6HPRN PRN PRN Reason: Dizziness Betamethasone Dipropionate [Sernivo] 120 ml TP BIDPRN PRN PRN Reason: Itching Instructions: Pneumonia, Adult (DC) Additional Instructions: FOLLOWUP WITH YOUR ONCOLOGIST SCHEDULED. Follow up with: ANGELA URIARTE [ACTIVE STAFF] - 08/14/18 1:50 pm (at [facility]) KENYA DELA CRUZ MD [Primary Care Provider] - 08/05/18 10:00 am Forms: Discharge Instructions
--- NOTE | 2018-07-30 07:40 | CONS ---
CONSULT DATE: 07/28/2018 REASON FOR CONSULT: Right chest wall fluid. HISTORY: The patient had recent breast biopsy at mastectomy site. She has developed a small seroma underneath this. It is doing satisfactory. IMPRESSION: Small seroma right chest wall of minimal clinical significance.
[2018-07-31] MEDS ORDERED: VITAMIN D2 PO SCH (10:00)
== END 2018-07-29 13:10 | disposition home or self-care (01) ==
LOC: MED SURG 15:14 → UNDOADMOB 15:14
PROVIDERS: ADMIT General Practice; ATTEND General Practice
DX: D89.9 Disorder involving the immune mechanism, unspecified (principal); J18.9 Pneumonia, unspecified organism; E87.6 Hypokalemia; J94.8 Other specified pleural conditions; M25.511 Pain in right shoulder; R79.1 Abnormal coagulation profile; R06.02 Shortness of breath; R53.83 Other fatigue; Z79.899 Other long term (current) drug therapy; Z85.3 Personal history of malignant neoplasm of breast; Z90.13 Acquired absence of bilateral breasts and nipples
CPT/HCPCS: 36415; 36600; 71046; 71260; 73030; 80053; 82375; 82803; 84484; 85027; 85379; 87040; 87493; 93268; 93970; G0378; J0456; J0696; J1642; J1650; J2930; A9270-GY

== ENCOUNTER 2019-03-04 19:58 | Emergency (ER) | payer BC ==
[2019-03-04 20:14] VITALS: O2SAT 97
[2019-03-04] MEDS ORDERED: PERCOCET TABLET 5/325MG PO ONE (20:37)
--- NOTE | 2019-03-04 20:43 | ERPHSYRPT ---
- History of Present Illness Time Seen by Provider: 03/04/19 20:10 Source: patient Exam Limitations: no limitations Patient Subjective Stated Complaint: pt states, "I was outside feeding the dogs and fell in a hole, twisting my ankle". Triage Nursing Assessment: pt has lg amt of edema to lt lateral ankle, due to fall this evening, ice pack in place. Lungs clear, diminished. Heart tones reg , abd soft with active bs x4, non-tender. Physician History: 58 yo is here with CC of left ankle pain after she accidently stepped in a small hole while feeding her dogs [employer] and twisted his ankle. is c/o severe sharp pain with movements and partial relief with being still, cant put weight because of pain. associated with swelling of lateral ankle. no injury anywhere else. Allergies/Adverse Reactions: codeine Adverse Reaction (Verified 03/10/18 17:50) Nausea Home Medications: Cetirizine HCl [Zyrtec] 10 mg PO HS 03/10/18 [History] Betamethasone Dipropionate [Sernivo] 120 ml TP BIDPRN PRN 07/25/18 [History] Cyanocobalamin 500 Mcg [Vitamin B-12 500 MCG] 500 mcg PO HS 07/25/18 [ History] Ergocalciferol (Vitamin D2) [Vitamin D2] 1 cap PO WEEKLY 07/25/18 [History] Exemestane 1 tab PO HS 07/25/18 [History] Omeprazole 20 mg PO HS 07/25/18 [History] Hx Tetanus, Diphtheria Vaccination/Date Given: Yes Hx Influenza Vaccination/Date Given: Yes Hx Pneumococcal Vaccination/Date Given: No Immunizations Up to Date: Yes - Review of Systems Constitutional: No Symptoms Eyes: No Symptoms Ears, Nose, & Throat: No Symptoms Respiratory: No Symptoms Cardiac: No Symptoms Abdominal/Gastrointestinal: No Symptoms Genitourinary Symptoms: No Symptoms Musculoskeletal: Arthralgias, Fall, Joint Pain, Joint Swelling Skin: No Symptoms Neurological: No Symptoms Psychological: No Symptoms Endocrine: No Symptoms - Past Medical History Pertinent Past Medical History: Yes Neurological History: No Pertinent History ENT History: No Pertinent History Cardiac History: No Pertinent History Respiratory History: Bronchitis, Pneumonia Endocrine Medical History: No Pertinent History Musculoskeletal History: Fractures GI Medical History: No Pertinent History History: No Pertinent History Psycho-Social History: No Pertinent History Female Reproductive Disorders: Breast Cancer, Cervical Cancer Other Medical History: genital warts - Past Surgical History Past Surgical History: Yes Neuro Surgical History: No Pertinent History Cardiac: No Pertinent History Respiratory: No Pertinent History Gastrointestinal: No Pertinent History Genitourinary: No Pertinent History Musculoskeletal: No Pertinent History Female Surgical History: Dilation & Curettage, Section, Mastectomy, Other Other Surgical History: Breast biopsy, double mastectomy, CVL PLACEMENT AND REMOVAL x2, ESTRADA PROCEDURE X3 - Social History Smoking Status: Never smoker Exposure to second hand smoke: No Drug Use: none Patient Lives Alone: No - Female History Hx Now: No - Nursing Vital Signs Nursing Vital Signs: Initial Vital Signs Temperature 98.4 F 03/04/19 20:12 Pulse Rate 101 H 03/04/19 20:12 Respiratory Rate 18 03/04/19 20:12 Blood Pressure 184/103 03/04/19 20:12 O2 Sat by Pulse Oximetry 97 03/04/19 20:12 Pain Scale Pain Intensity 9 - Physical Exam General Appearance: no apparent distress Eyes, Ears, Nose, Throat Exam: normal ENT inspection Neck Exam: normal inspection Cardiovascular/Respiratory Exam: chest non-tender, normal breath sounds, regular rate/rhythm, heart sounds normal Gastrointestinal/Abdominal Exam: non-tender, soft Back Exam: normal inspection, normal range of motion Hips Exam: bilateral: non-tender Legs Exam: bilateral leg: non-tender Knees Exam: bilateral knee: non-tender Ankle Exam: right ankle: non-tender, normal inspection, normal range of motion, no evidence of injury, left ankle: limited range of motion, pain, soft tissue tenderness (marked swelling lateral ankle ), swelling Foot Exam: right foot: non-tender, normal inspection, left foot: soft tissue tenderness, swelling Neuro/Tendon Exam: normal sensation, normal motor functions Mental Status Exam: alert, oriented x 3 Skin Exam: normal color SpO2 Interpretation: normal SpO2: 97 O2 Delivery: Room Air - Course Nursing assessment & vital signs reviewed: Yes Ordered Tests: Active Orders 24 hr Category Date Time Status ANKLE (3 VIEWS) Stat Exams 03/04/19 Ordered FOOT (MINIMUM 3 VIEWS) Stat Exams 03/04/19 Ordered Medication Summary Discontinued Medications Generic Name Dose Route Start Last Admin Trade Name Freq PRN Reason Stop Dose Admin Oxycodone/Acetaminophen 1 tab 03/04/19 20:37 03/04/19 20:45 Percocet Tablet 5/325mg PO 03/04/19 20:38 1 tab STAT ONE Administration Oxycodone/Acetaminophen Confirm 03/04/19 20:44 Percocet Tablet 5/325mg Administered 03/04/19 20:45 Dose 1 tab .ROUTE .STK-MED ONE - Progress Progress: improved, pain not gone completely, re-examined Progress Note: given pain meds , xrays showed lateral malleolus avulsion fx. placed in long boot with crutches and outpatient ortho follow up. 03/04/19 21:28 Counseled pt/family regarding: diagnosis, need for follow-up, rad results - Departure Departure Disposition: Home Clinical Impression: Fractured lateral malleolus Qualifiers: Encounter type: initial encounter Fracture type: closed Fracture alignment: nondisplaced Laterality: left Qualified Code(s): S82.65XA - Nondisplaced fracture of lateral malleolus of left fibula, initial encounter for closed fracture Condition: Stable Critical Care Time: No Referrals: KENYA DELA CRUZ MD [Primary Care Provider] - ORTHO - CHARANJIT PAULSON NP [NON-STAFF PHY W/O PRIVILEGES] - 03/05/19 (call in the morning for re evaluation ) Instructions: Ankle Sprain (DC) Additional Instructions: no weight bearing untill evaluated by ortho take pain meds as needed Prescriptions: Hydrocodone/APAP 5-325 Tab^^^ [[place] 5-325 Tablet^^^] 1 tab PO Q6HPRN PRN #10 tablet MDD 6 PRN Reason: Pain
[2019-03-04] MEDS ORDERED: PERCOCET TABLET 5/325MG ONE (20:44)
[2019-03-04] MEDS ORDERED: NORCO 5/325 MG PO PRN (21:32)
[2019-03-04 21:43] VITALS: BP 156/78; PULSE 78
[2019-03-04] MEDS ORDERED: NORCO 5/325 MG ONE (21:46)
--- NOTE | 2019-03-05 08:46 | XRAY ---
Indication: Pain following fall. Comparison: None 3 views of the left ankle demonstrates nondisplaced cortical fracture tip of the lateral malleolus with anterolateral soft tissue swelling. Incidental small heel spurs. No other bony, articular, or soft tissue abnormalities. Foot reported separately.
--- NOTE | 2019-03-05 08:46 | XRAY ---
Indication: Pain following fall. Comparison: None 3 nonweightbearing views of the left foot demonstrates small heel spurs. No other bony, articular, or soft tissue abnormalities. Ankle reported separately.
== END 2019-03-04 21:58 | disposition home or self-care (01) ==
LOC: ED 19:58
DX: S82.65XA Nondisplaced fracture of lateral malleolus of left fibula, initial encounter for closed fracture (principal); X50.1XXA Overexertion from prolonged static or awkward postures, initial encounter; Y93.89 Activity, other specified; Y92.89 Other specified places as the place of occurrence of the external cause
CPT/HCPCS: 73610; 73630; 99284; L4386; A9270-GY